=== PATIENT | male | born 1945 | race Caucasian/White ===

== ENCOUNTER 2024-10-22 16:50 | Inpatient (IN) | payer MEDICARE ==
[2024-10-22 17:27] LABS: ALV-art Gradient 128.875 mmHg (0-20); Actual Bicarbonate (HCO3a) 23.5 mEq/L (22-28); Analyzer IN Cardio ER; CO2 Tension 48.9 mmHg (35.0-45.0); Calcium, Ionized (arterial) 1.17 mmol/L (1.12-1.30); Hematocrit-ABG 29 % (42.0-52.0); Hemoglobin (Hb) 9.7 g/dL (14.0-18.0); O2 Tension (PaO2), arterial 95.2 mmHg (> 70.0); Puncture Site Right Radial artery; pH, Arterial 7.299 (7.35-7.45)
[2024-10-22] MEDS ORDERED: Morphine 4 MG/ML VIAL ONE (17:39)
[2024-10-22] MEDS ORDERED: cefTRIAXone (ROCEPHIN) 1 GM VIAL ONE (17:57)
[2024-10-22] MEDS ORDERED: Sodium Chloride 0.9% 100 ML ONE (17:57)
[2024-10-22 18:35] LABS: #Basophils 0.04 10x3/uL (0.0-0.2); #Eosinophils Less than 0.03 10x3/uL (0.0-0.7); %Basophils 0.3 % (0.0-1.0); %Eosinophils 0.1 % (0.0-10.0); %Lymphocytes 1.6 % (21.0-51.0); %Monocytes 1.7 % (0.0-10.0); %Neutrophils 95.6 % (42.0-75.0); Hematocrit 28.9 % (42.0-52.0); Hemoglobin 8.6 g/dL (14.0-18.0); Mean Corpuscular HGB CONC 29.8 g/dL (32.0-36.0); Mean Corpuscular Hemoglobin 25.5 pg (27.0-31.0); Mean Corpuscular Volume 85.8 fL (78.0-98.0); Mean Platelet Volume 10.4 fL (7.4-10.4); Platelet Count 299 10x3/uL (130-400); RBC Distribution Width 15.6 % (11.5-14.5); Red Blood Cell (RBC) Count 3.37 mill/uL (4.70-6.10)
[2024-10-22] MEDS ORDERED: Ketorolac Tromethamine 30 MG (1 mL) VIAL ONE (18:45)
[2024-10-22] MEDS ORDERED: Azithromycin 500 MG VIAL ONE (18:45)
[2024-10-22 18:54] LABS: Troponin I 0.034 ng/mL (< 0.028)
[2024-10-22 18:56] LABS: ALT (SGPT) 16 U/L (Less than 45); AST (SGOT) 25 U/L (11-34); Albumin 3.7 g/dL (3.1-4.5); Alkaline Phosphatase 140 U/L (40-110); Anion Gap 19 mmol/L (10-20); BUN (Urea Nitrogen) 11 mg/dL (8.4-25.7); Bilirubin, Total 0.2 mg/dL (0.3-1.2); Calc. Creatinine Clearance 0 mL/min (70-130); Carbon Dioxide 18 mmol/L (23-31); Chloride 99 mmol/L (98-107); Estimated GFR 81; Globulin 3.9 g/dL (2.4-3.5); Glucose 131 mg/dL (83-110); Potassium 3.5 mmol/L (3.5-5.1); Protein, Total 7.6 g/dL (5.8-8.1); Sodium 132 mmol/L (136-145)
[2024-10-22] MEDS ORDERED: Aspirin Chewable 81 MG TAB ONE (19:15)
[2024-10-22] MEDS ORDERED: Acetaminophen 325 MG TAB PO PRN (20:21)
[2024-10-22] MEDS ORDERED: Ondansetron PF 4 MG/2 ML Vial IVP PRN (20:21)
[2024-10-22] MEDS ORDERED: Metoprolol Succinate XL 25 MG ER.TAB PO SCH (20:45)
[2024-10-22] MEDS ORDERED: Insulin Lispro 100 UNIT/ML 10 ML VIAL SC PRN (20:47)
[2024-10-22] MEDS ORDERED: Dextrose 50% Abboject 50 ML SYRINGE SLOW IVP PRN (20:47)
[2024-10-22] MEDS ORDERED: Glucagon 1 MG/ML KIT IM PRN (20:47)
[2024-10-22] MEDS ORDERED: Dextrose 5% in Water 1,000 ML IV PRN (20:47)
[2024-10-22] MEDS ORDERED: Famotidine 20 MG TAB PO SCH (21:00)
[2024-10-22] MEDS: Metoprolol Succinate XL 25 MG ER.TAB PO SCH (22:00)
[2024-10-22] MEDS: methylPREDNISolone Sod Succ 40 MG VIAL IVP SCH (22:00)
[2024-10-22] MEDS: Pramipexole Di-HCl 0.25 MG TAB PO SCH (22:01)
[2024-10-22 22:08] LABS: Lactic Acid 2.21 mmol/L (0.50-2.20)
[2024-10-22 22:13] LABS: Troponin I 0.038 ng/mL (< 0.028)
[2024-10-22 22:55] VITALS: BMI 25.5
[2024-10-22] MEDS: Ipratropium/Albuterol 3 ML NEB NEB SCH (23:19)
[2024-10-23 04:08] LABS: #Basophils Less than 0.03 10x3/uL (0.0-0.2); #Eosinophils Less than 0.03 10x3/uL (0.0-0.7); %Basophils 0.1 % (0.0-1.0); %Lymphocytes 3.3 % (21.0-51.0); %Monocytes 2.2 % (0.0-10.0); %Neutrophils 93.8 % (42.0-75.0); Hemoglobin 8.5 g/dL (14.0-18.0); Mean Corpuscular HGB CONC 30.4 g/dL (32.0-36.0); Mean Corpuscular Hemoglobin 25.4 pg (27.0-31.0); Mean Corpuscular Volume 83.6 fL (78.0-98.0); Mean Platelet Volume 9.9 fL (7.4-10.4); Platelet Count 321 10x3/uL (130-400); RBC Distribution Width 15.4 % (11.5-14.5); Red Blood Cell (RBC) Count 3.35 mill/uL (4.70-6.10)
[2024-10-23 04:36] LABS: Troponin I 0.047 ng/mL (< 0.028)
[2024-10-23 04:41] LABS: Anion Gap 16 mmol/L (10-20); BUN (Urea Nitrogen) 12 mg/dL (8.4-25.7); Calc. Creatinine Clearance 71 mL/min (70-130); Calcium 8.9 mg/dL (7.8-10.44); Carbon Dioxide 19 mmol/L (23-31); Chloride 101 mmol/L (98-107); Estimated GFR 82; Glucose 173 mg/dL (83-110); Magnesium 2.2 mg/dL (1.6-2.6); Potassium 4.2 mmol/L (3.5-5.1); Sodium 132 mmol/L (136-145)
[2024-10-23] MEDS: Furosemide 40 MG (4 mL) VIAL SLOW IVP SCH (05:46)
[2024-10-23] MEDS: Insulin Lispro 100 UNIT/ML 10 ML VIAL SC PRN (05:46)
[2024-10-23] MEDS: Levothyroxine 175 MCG TAB PO SCH (05:46)
[2024-10-23] MEDS: Budesonide 0.5 MG/2 ML NEB NEB SCH (06:33)
[2024-10-23] MEDS ORDERED: Famotidine/PF 20 mg/2ml Vial SLOW IVP SCH (09:00)
[2024-10-23] MEDS ORDERED: Alogliptin 6.25 MG TAB PO SCH (09:00)
[2024-10-23] MEDS: Saxagliptin 2.5 MG TAB PO SCH (09:04)
[2024-10-23] MEDS: Vit A,C & E/Lutein/Minerals Tablet PO SCH (09:04)
[2024-10-23] MEDS: Losartan 25 MG TAB PO SCH (09:05)
[2024-10-23] MEDS: Aspirin 325 MG TAB PO SCH (09:05)
[2024-10-23] MEDS: Enoxaparin 40 MG (0.4 mL) SYRINGE SC SCH (09:05)
[2024-10-23 09:06] LABS: Iron 13 ug/dL (65-175); Iron Binding Capacity, Total 381 mcg/dL (261-462)
[2024-10-23] MEDS: Albuterol 2.5 MG (3 mL) NEB NEB PRN (09:23)
[2024-10-23] MEDS: Sodium Ferric Gluconate 250 MG in Sodium Chloride 0.9% 250 ML 250 ML IVPB SCH (16:42)
[2024-10-23] MEDS: Dronedarone HCl 400 MG TAB PO SCH (16:43)
[2024-10-23] MEDS: Spironolactone 25 MG TAB PO SCH (16:43)
[2024-10-23] MEDS: Empagliflozin 10 MG TAB PO SCH (16:43)
[2024-10-23] MEDS: cefTRIAXone\\ROCEPHIN 1 GM in Sodium Chloride 0.9% 100 ML IVPB SCH (18:04)
[2024-10-23] MEDS: Magnesium Oxide 400 MG TAB PO PRN (20:43)
[2024-10-23] MEDS: Rosuvastatin 20 MG TAB PO SCH (20:43)
[2024-10-23] MEDS: Azithromycin 500 MG in Sodium Chloride 0.9% 250 ML 250 ML IVPB SCH (20:43)
[2024-10-23] MEDS: DULoxetine 20 MG CAP PO SCH (20:44)
[2024-10-23] MEDS: Melatonin 3 MG TAB PO PRN (20:44)
[2024-10-24 05:30] LABS: #Basophils Less than 0.03 10x3/uL (0.0-0.2); #Eosinophils Less than 0.03 10x3/uL (0.0-0.7); %Basophils 0.1 % (0.0-1.0); %Monocytes 3.2 % (0.0-10.0); %Neutrophils 92.8 % (42.0-75.0); Hematocrit 24.5 % (42.0-52.0); Hemoglobin 7.7 g/dL (14.0-18.0); Mean Corpuscular HGB CONC 31.4 g/dL (32.0-36.0); Mean Corpuscular Hemoglobin 25.5 pg (27.0-31.0); Mean Corpuscular Volume 81.1 fL (78.0-98.0); Mean Platelet Volume 9.8 fL (7.4-10.4); Platelet Count 337 10x3/uL (130-400); RBC Distribution Width 15.7 % (11.5-14.5); Red Blood Cell (RBC) Count 3.02 mill/uL (4.70-6.10)
[2024-10-24 05:56] LABS: Anion Gap 16 mmol/L (10-20); BUN (Urea Nitrogen) 28 mg/dL (8.4-25.7); Calc. Creatinine Clearance 58 mL/min (70-130); Carbon Dioxide 24 mmol/L (23-31); Chloride 97 mmol/L (98-107); Estimated GFR 67; Glucose 161 mg/dL (83-110); Magnesium 2.2 mg/dL (1.6-2.6); Potassium 3.7 mmol/L (3.5-5.1); Sodium 133 mmol/L (136-145)
[2024-10-24] MEDS ORDERED: Pantoprazole 40 MG DR.TAB PO SCH ×2 (09:00)
[2024-10-24] MEDS: Spironolactone 25 MG TAB PO SCH (09:15)
[2024-10-24] MEDS: Empagliflozin 10 MG TAB PO SCH (09:15)
[2024-10-24] MEDS: OMEPRAZOLE 20 MG PO SCH (09:57)
[2024-10-24] MEDS: methylPREDNISolone Sod Succ 40 MG VIAL IVP SCH (13:48)
[2024-10-24] MEDS ORDERED: Polyethylene Glycol 3350 17 GM Packet PO PRN (15:06)
[2024-10-24] MEDS: Bisacodyl 5 MG TAB PO SCH (17:25)
[2024-10-24] MEDS: Azithromycin 500 MG VIAL ONE (21:45)
[2024-10-24] MEDS: Docusate 100 MG CAP PO SCH (21:45)
[2024-10-25 04:30] LABS: #Basophils Less than 0.03 10x3/uL (0.0-0.2); #Eosinophils Less than 0.03 10x3/uL (0.0-0.7); %Basophils 0.1 % (0.0-1.0); %Monocytes 6.1 % (0.0-10.0); %Neutrophils 87.8 % (42.0-75.0); Hematocrit 25.9 % (42.0-52.0); Hemoglobin 8.1 g/dL (14.0-18.0); Mean Corpuscular HGB CONC 31.3 g/dL (32.0-36.0); Mean Corpuscular Hemoglobin 25.6 pg (27.0-31.0); Mean Platelet Volume 9.6 fL (7.4-10.4); Platelet Count 382 10x3/uL (130-400); RBC Distribution Width 15.7 % (11.5-14.5); Red Blood Cell (RBC) Count 3.16 mill/uL (4.70-6.10)
[2024-10-25 04:45] LABS: Anion Gap 20 mmol/L (10-20); BUN (Urea Nitrogen) 33 mg/dL (8.4-25.7); Calc. Creatinine Clearance 50 mL/min (70-130); Calcium 9.3 mg/dL (7.8-10.44); Carbon Dioxide 25 mmol/L (23-31); Chloride 93 mmol/L (98-107); Estimated GFR 56; Glucose 134 mg/dL (83-110); Magnesium 2.1 mg/dL (1.6-2.6); Potassium 4.4 mmol/L (3.5-5.1); Sodium 134 mmol/L (136-145)
[2024-10-25 11:07] VITALS: TEMP 98.6
[2024-10-25] MEDS ORDERED: Bisacodyl 5 MG TAB PO PRN (12:10)
[2024-10-25 12:59] VITALS: BP 124/58
[2024-10-25] MEDS ORDERED: Cefdinir 300 MG CAP PO SCH (21:00)
[2024-10-26] MEDS ORDERED: Aspirin 81 mg Enteric Coated Tablet PO SCH (08:00)
[2024-10-26] MEDS ORDERED: predniSONE 20 MG TAB PO SCH (08:00)
== END 2024-10-25 14:31 | disposition home or self-care (01) | DRG 291 ==
LOC: ERS 16:50 → IMCU/EMU 19:47 → 2NO 10-24 10:35
PROVIDERS: ADMIT Internal Medicine; ATTEND Internal Medicine
PROC: 5A09357 Assistance with Respiratory Ventilation, Less than 24 Consecutive Hours, Continuous Positive Airway Pressure (ICD-10-PCS; principal; 2024-10-22)
DX: I11.0 Hypertensive heart disease with heart failure (principal); I50.33 Acute on chronic diastolic (congestive) heart failure; J96.21 Acute and chronic respiratory failure with hypoxia; J96.02 Acute respiratory failure with hypercapnia; J44.1 Chronic obstructive pulmonary disease with (acute) exacerbation; E87.1 Hypo-osmolality and hyponatremia; E87.20 Acidosis, unspecified; I25.10 Atherosclerotic heart disease of native coronary artery without angina pectoris; E78.5 Hyperlipidemia, unspecified; E11.51 Type 2 diabetes mellitus with diabetic peripheral angiopathy without gangrene; E03.9 Hypothyroidism, unspecified; G25.81 Restless legs syndrome; I48.91 Unspecified atrial fibrillation; E78.00 Pure hypercholesterolemia, unspecified; F17.210 Nicotine dependence, cigarettes, uncomplicated; F10.10 Alcohol abuse, uncomplicated; D50.9 Iron deficiency anemia, unspecified; J43.9 Emphysema, unspecified; Z90.49 Acquired absence of other specified parts of digestive tract; Z79.84 Long term (current) use of oral hypoglycemic drugs; Z88.8 Allergy status to other drugs, medicaments and biological substances; Z88.1 Allergy status to other antibiotic agents; Z79.82 Long term (current) use of aspirin; Z79.899 Other long term (current) drug therapy; Z79.890 Hormone replacement therapy
CPT/HCPCS: 36415; 36416; 36600; 71045; 80048; 82728; 82805; 83540; 83550; 83605; 83735; 84443; 84484; 85025; 87040; 87428; 87633; 93005; 93306; 94640; 94660; 96365; 96367; 96375; J0456; J0696; J1650; J1815; J1885; J1940; J2270; J2916; J2919; J7050; J7611; J7620; J7626